=== PATIENT | male | born 1955 | race Caucasian/White ===

== ENCOUNTER 2021-12-09 17:37 | Emergency (ER) | payer OTHER ==
[~2021-12-09] VITALS: Ht 172.7 cm; Wt 86.0 kg
[2021-12-09] MEDS: ketorolac trometh. 30mg/ml inj. IV ONE (19:57)
[2021-12-09 19:58] VITALS: BP 150/76
[2021-12-09] MEDS: diazepam inj 5 MG/ML inj. IV ONE (20:29)
[2021-12-09] MEDS: ketamine 10mg/ml 20ml inj vial IV ONE (20:29)
[2021-12-09] MEDS: ketamine 50mg/5ml syringe ONE (20:30)
[2021-12-09] MEDS: ondansetron/PF 4mg/2ml inj IV ONE (20:30)
== END 2021-12-09 20:49 | disposition home or self-care (01) ==
LOC: ER 17:39
DX: S43.085A Other dislocation of left shoulder joint, initial encounter (principal); I10 Essential (primary) hypertension; X58.XXXA Exposure to other specified factors, initial encounter; Y93.89 Activity, other specified; Y92.89 Other specified places as the place of occurrence of the external cause; Y99.8 Other external cause status
CPT/HCPCS: 23650; 73020; 73060; 96374; 99285; J1885; J7030; A4565; A4620; J3490